=== PATIENT | male | born 1965 | race Caucasian/White ===

== ENCOUNTER 2017-07-26 16:59 | Emergency (ER) | payer BC ==
[~2017-07-26] VITALS: Ht 185.4 cm; Wt 83.9 kg
[~2017-07-26 16:59] MED LIST: ASPIRIN325 PO; BACTRIM DS TAB1 EACH PO; CELEBREX 200 M200 M1 PO; COLACE 100 MG100 MG PO; COLACE100 MG PO; FENOFIBRATE160 MG PO; METAMUCIL1 EAC1 PO; NEURONTIN 300300 M1 PO; NORCO 10-325 T1 EACH PO; OXYCODONE HCL 55 MG PO; PERCOCET PO; PHENOBARBITAL15 MG PO; TYLENOL325 MG PO; XANAX1 MG PO; XARELTO10 MG PO
[2017-07-26] MEDS ORDERED: HYDROCODONE-AP1 EAC6 PO (18:12)
[2017-07-26 18:28] VITALS: BP 140/70
== END 2017-07-26 18:28 | disposition home or self-care (01) ==
LOC: M.ERS 16:59
DX: M25.562 Pain in left knee (principal); F17.200 Nicotine dependence, unspecified, uncomplicated; Z96.652 Presence of left artificial knee joint; Z88.0 Allergy status to penicillin